=== PATIENT | female | born 1970 | race Caucasian/White ===

== ENCOUNTER 2016-12-15 08:38 | Day surgery (SDC) | payer OTHER ==
[~2016-12-15 08:38] MED LIST: LIDOCAINE 1% 30 ML SDV ONE; LR 1,000 ML IV ONE; SILVER NITRATE APPLICATOR 1 APPL TP ONE
[2016-12-15] MEDS ORDERED: LIDOCAINE 1% 5 ML SDV ONE (09:15)
[2016-12-15] MEDS ORDERED: MIDAZOLAM 2 MG/2 ML VIAL ONE (09:48)
[2016-12-15] MEDS ORDERED: PROPOFOL/EMULSION 500 MG/50 ML BOTTLE IV ONE (10:14)
[2016-12-15] MEDS ORDERED: LIDOCAINE 2% 5 ML SDV ONE (10:15)
[2016-12-15] MEDS ORDERED: fentaNYL 100 MCG/2 ML INJ ONE (10:18)
[2016-12-15] MEDS ORDERED: KETOROLAC 30 MG/1 ML SDV ONE (10:56)
--- NOTE | 2016-12-15 12:12 | GOP ---
[f rep st] OPERATIVE REPORT DATE OF OPERATION: 12/15/2016 SURGEON: Jessica James MD CLINICAL LABORATORY MANAGER: None. ANESTHESIA: LMA. PREOPERATIVE DIAGNOSIS: Menorrhagia and endometrial polyp. POSTOPERATIVE DIAGNOSIS: Menorrhagia and endometrial polyp. PROCEDURE PERFORMED: Hysteroscopy, polypectomy and novasure endometrial ablation. FINDINGS: Two endometrial polyps. Otherwise normal uterine cavity. SPECIMENS: Endometrial polyps. ESTIMATED BLOOD LOSS: Less than 10 mL. INDICATIONS: The patient is a 46-year-old female who had long-standing history of menorrhagia and had endometrial polyps and desired surgical management. DESCRIPTION OF PROCEDURE: The patient was taken to the operating room, where she was prepped and draped in a normal sterile fashion in the high dorsal lithotomy position. A surgical time-out was performed, verifying the patient's name, date of , planned procedure, and site. The patient had a normal endometrial biopsy prior to the procedure. The patient had a bivalve speculum placed in the vagina. The anterior aspect of the cervix was grasped with a single-tooth tenaculum. The patient received a paracervical block of 1% lidocaine. The cervix was dilated to 6 mm. A hysteroscope was placed into the uterine cavity. Two endometrial polyps were found; 1 was approximately 2 cm in size, and the other was 1 cm in size, which were removed with the Truclear morcellator blade. The hysteroscope was then removed. The cervix was then dilated to 8 mm. The uterine cavity was measured; it was 5.5 cm in length and 4.5 cm in width. The NovaSure device was deployed in the normal fashion. Cavity integrity assessment took placement, and it was verified that there was no cavity perforation, and the endometrial ablation took place for 90 seconds at a power of 136. The NovaSure device was removed. The single-tooth tenaculum was removed. Hemostasis was obtained with silver nitrate. The patient tolerated the procedure well. As noted, fluid deficit was 250 mL. All counts were correct x2, and the patient was stable to the recovery room. COMPLICATIONS: None. FLUID DEFICIT: 250 mL. OUTCOME: Stable, to recovery room. /[id number]/MODL MTDD
== END 2016-12-15 12:00 | disposition home or self-care (01) ==
LOC: FSGY 08:38
PROVIDERS: ATTEND Obstetrics & Gynecology
PROC: 0UDB8ZZ Extraction of Endometrium, Via Natural or Artificial Opening Endoscopic (ICD-10-PCS; principal; 2016-12-15 10:15)
DX: N84.0 Polyp of corpus uteri (principal); N92.0 Excessive and frequent menstruation with regular cycle; D64.9 Anemia, unspecified
CPT/HCPCS: 58563; C1782; J1885; J2250; J2704; J3010